=== PATIENT | female | born 1930 | race Caucasian/White ===

== ENCOUNTER 2016-03-11 10:34 | Observation (INO) | payer MEDICARE, BC ==
--- NOTE | 2016-03-11 10:56 | Emergency Department Record ---
History of Present Illness - General Chief Complaint: Hypertension Stated Complaint: HIGH BLOOD PRESSURE Time Seen by Provider: 03/11/16 10:55 Source: Patient Mode of Arrival: Ambulatory Limitations: No limitations - History of Present Illness Initial Comments: The patient is here due to a 2 day hx of gradually increasing mild CP and RALPH. She states the discomfort is very mild and is worse with deep breaths at times. She also states her BP has been up and down at times at home. She also is very upset and crying over the recent of her son which occurred 2 days ago in the [facility]. Complaint: Lightheadedness, Other Onset/Timin -: Days(s) Timing: Gradual onset History of Same: Yes Severity: Mild - Maribell Coma Scale Eye Response: (4) Open spontaneously Motor Response: (6) Obeys commands Verbal Response: (5) Oriented [place] Total: 15 - Related Data Home Medications Medication Instructions Recorded Confirmed Last Taken Hydrocodone/Acetaminophen 1 tab PO ASDIR 10/10/15 03/11/16 1 Day Ago [Hydrocodon-Acetaminoph 7.5-325] Levothyroxine Sodium [Synthroid] 50 mcg PO DAILY 10/10/15 03/11/16 1 Day Ago Lorazepam [Lorazepam] 0.5 mg PO QHS 10/10/15 03/11/16 1 Day Ago Omeprazole [Omeprazole] 40 mg PO DAILY 10/10/15 03/11/16 1 Day Ago Sertraline HCl [Zoloft] 50 mg PO DAILY 10/10/15 03/11/16 1 Day Ago Finasteride [Proscar] 1.25 mg PO DAILY 03/11/16 03/11/16 1 Day Ago Losartan Potassium [Cozaar] 25 mg PO DAILY 03/11/16 03/11/16 1 Day Ago Allergies Allergy/AdvReac Type Severity Reaction Status Date / Time Sulfa (Sulfonamide Allergy Unknown PT UNSURE Verified 03/11/16 10:49 Antibiotics) OF REACTION Travel Screening - Travel/Exposure Within Last 30 Days Have you traveled within the last 30 days?: No - Travel/Exposure Within Last Year Have you traveled outside the [place] in the last year?: No - Additonal Travel Details Have you been exposed to anyone with a communicable illness?: No - Travel Symptoms Symptom Screening: None Review of Systems Constitutional: Denies: Chills, Fever Eyes: Denies: Eye discharge Respiratory: Denies: Cough, Dyspnea Cardiovascular: Reports: Dyspnea on exertion. Denies: Arrhythmia Endocrine: Reports: Fatigue Gastrointestinal: Denies: Diarrhea Genitourinary: Denies: Dysuria Musculoskeletal: Denies: Back pain Skin: Denies: Bruising Past Medical History - SOCIAL HISTORY Smoking Status: Never smoker Alcohol Use: None Drug Use: None - RESPIRATORY Hx Respiratory Disorders: No - CARDIOVASCULAR Hx Hypertension: Yes - NEURO Hx CVA: Yes Hx TIA: Yes (multiple) - GI Hx GI Disorders: Yes Hx Reflux: Yes - Hx Genitourinary Disorders: No - ENDOCRINE Hx Endocrine Disorders: Yes Hx Diabetes: No Hx Thyroid Disease: Yes - MUSCULOSKELETAL Hx Musculoskeletal Disorders: Yes Hx Arthritis: Yes Hx Fibromyalgia: Yes - PSYCH Hx Psych Problems: Yes Hx Depression: Yes - HEMATOLOGY/ONCOLOGY Hx Hematology/Oncology Disorders: Yes Hx Anemia: Yes Hx Cancer: Yes (skin, subcutaneous) Hx Radiation Therapy: Yes Family Medical History Any Significant Family History?: Yes Physical Exam - General General Appearance: Alert, Oriented x3, Cooperative, No acute distress (The patient is tearful about her recent home events.) - Head Head exam: Atraumatic, Normocephalic, Normal inspection - Eye Eye exam: Normal appearance, PERRL - ENT ENT exam: Normal exam, Mucous membranes moist, Normal external ear exam, Normal orophraynx, TM's normal bilaterally Throat exam: Normal inspection. negative: Tonsillar erythema, Tonsillar exudate - Neck Neck exam: Normal inspection, Full ROM. negative: Tenderness - Respiratory Respiratory exam: Normal lung sounds bilaterally. negative: Respiratory distress - Cardiovascular Cardiovascular Exam: Regular rate, Normal rhythm, Normal heart sounds - Extremities Extremities exam: Normal inspection, Full ROM, Normal capillary refill. negative: Tenderness - Back Back exam: Reports: Normal inspection - Neurological Neurological exam: Alert, Normal gait. negative: Abnormal gait, Motor sensory deficit Course Vital Signs 03/11/16 10:41 Temperature 98.0 F Pulse Rate 85 Respiratory 20 Rate Blood Pressure 179/93 Pulse Ox 100 - Reevaluation(s) Reevaluation #1: The patient is resting comfortably and denies any CP or SOB at this time. I did explain to her that her tests appear WNL and that the PE study was negative. She is more calm and less tearful presently. I also recommended keeping the patient in the hospital overnight to be sure her heart is OK and she did agree. I then discussed the case with Karlee (LADONNA) and she accepts the admission. 03/11/16 13:28 Medical Decision Making - Data Complexity MDM Data: Labs Ordered and/or Reviewed, X-Ray Ordered and/or Reviewed, EKG Ordered and/or Reviewed - Lab Data Result diagrams: 03/11/16 11:20 03/11/16 11:20 - EKG Data -: EKG Interpreted by Me (NSR at 75, Minimal ST depression lateral leads.) - Radiology Data Radiology results: Report reviewed (CXR: Pulm Fibrosis Chest CTA: Neg for PE, only fibrosis.) Disposition Disposition: Admit Clinical Impression: Chest pain Qualifiers: Chest pain type: unspecified Qualified Code(s): R07.9 - Chest pain, unspecified Disposition: Still a Patient at [facility] Decision to Admit: Admit from ER Decision to Admit Date: 03/11/16 Decision to Admit Time: 13:29 Accepting Physician: Amy Time Discussed w/Accepting Physician: 13:29 Condition: (2) Stable Forms: Patient Portal Access Time of Disposition: 13:30
[2016-03-11] MEDS ORDERED: ASPIRIN 325 MG TABLET PO ONE (11:08)
[2016-03-11] MEDS ORDERED: LORAZEPAM 2 MG/ML VIAL IV ONE ×2 (11:09→13:19)
[2016-03-11 11:23] LABS: BASO % 0.4 % (0-6); EOS % 0.6 % (0-6); GRAN % 74.1 % (47-80); HEMATOCRIT 36.1 % (35.0-47.0); HEMOGLOBIN 12.3 gm/dl (11.6-16.0); LYMPH % 17.3 % (16-45); MEAN CELL VOLUME 86.2 fl (81-97); MEAN CORPUSCULAR HEMOGLOBIN 29.4 pg (27-33); MEAN CORPUSCULAR HGB CONC 34.1 g/dl (32-36); MEAN PLATELET VOLUME 9.7 fl (7.4-10.4); MONO % 7.6 % (0-9); PLATELET COUNT 267 K/uL (130-400); RED BLOOD COUNT 4.19 M/uL (3.80-5.40); WHITE BLOOD COUNT W/O DIFF 8.3 K/uL (4.2-12.2)
[2016-03-11 11:36] LABS: ANION GAP 13.3 (7-16); BLOOD UREA NITROGEN 9 mg/dL (7-17); CARBON DIOXIDE 23.7 mmol/L (22-30); CREATINE PHOSPHOKINASE 81 U/L (30-135); CREATININE 0.6 mg/dL (0.52-1.04); EST GLOMERULAR FILTRATION RATE > 60 ml/min; GLUCOSE,RANDOM 115 mg/dL (70-110)
[2016-03-11 11:38] LABS: INR 0.96; PARTIAL THROMBOPLASTIN TIME 24.6 SECONDS (24.5-39.1); PROTHROMBIN TIME (PATIENT) 10.8 SECONDS (9.5-12.1)
[2016-03-11 11:39] LABS: D-DIMER 1.11 mg/L FEU (0-0.59)
[2016-03-11 11:49] LABS: CKMB 2.3 ug/L (0-6); TROPONIN I 0.012 ng/mL (0.00-0.034)
[2016-03-11] MEDS ORDERED: 0.9 % SODIUM CHLORIDE 1,000 ML BAG IV ONE (11:56)
[2016-03-11] MEDS ORDERED: ACETAMINOPHEN 500 MG TABLET PO PRN (14:30)
--- NOTE | 2016-03-11 15:11 | RADIOLOGY REPORT ---
EXAM: CHEST HISTORY: CHEST HEAVINESS. PAIN WITH DEEP INSPIRATION. TECHNIQUE: Two views of the chest were obtained. Comparison: 05/25/11. FINDINGS: The heart is not enlarged and there is no mediastinal mass. There are interstitial changes in both lungs which are worse than on the patient's previous study. No focal area of lung consolidation. IMPRESSION: 1. BILATERAL INTERSTITIAL INFILTRATES WHICH ARE WORSE THAN ON THE PATIENT'S PREVIOUS STUDY. PRESUMABLY THIS REPRESENTS A CHRONIC PROGRESSIVE PROCESS. A SUPERIMPOSED ACUTE INTERSTITIAL LUNG PROCESS OR VASCULAR CONGESTION WOULD BE DIFFICULT TO EXCLUDE. 2. OTHERWISE, UNREMARKABLE CHEST EXAMINATION. JOB NUMBER: [id number] MTDD
--- NOTE | 2016-03-11 15:17 | CT ANGIOGRAM REPORT ---
EXAM: CT ANGIOGRAPHY OF THE THORAX HISTORY: CHEST HEAVINESS AND DIFFICULTY BREATHING. D-DIMER 1.11. TECHNIQUE: CT angiography of the thorax was performed following contrast administration. 73 ml of Omnipaque 350 contrast was used for this examination. Coronal and sagittal post processed MIP images were performed on an independent workstation as part of this exam. Comparison: Chest x-ray 03/11/16. FINDINGS: No pulmonary emboli are seen. No aortic aneurysm or aortic dissection identified. No mediastinal or hilar mass or adenopathy. There are interstitial changes in the lungs bilaterally. These may be chronic. Pulmonary fibrosis cannot be excluded. No focal area of lung consolidation seen. No lung mass or lung nodule identified. No pleural or pericardial effusion. Limited upper abdominal images are unremarkable. There has been a prior cholecystectomy and there is some prominence of the intra and extrahepatic bile ducts similar to the previous abdominal CT study from 2010 likely a physiologic response to the cholecystectomy. IMPRESSION: 1. THERE ARE NO PULMONARY EMBOLI. NO AORTIC ANEURYSM OR AORTIC DISSECTION. 2. THERE ARE INTERSTITIAL CHANGES IN BOTH LUNGS WHICH ARE PRESUMABLY CHRONIC. THIS COULD BE THE RESULT OF PULMONARY FIBROSIS. 3. PRIOR CHOLECYSTECTOMY WITH SOME PROMINENCE OF THE INTRA AND EXTRAHEPATIC BILE DUCTS LIKELY A PHYSIOLOGIC RESPONSE TO THE CHOLECYSTECTOMY. 4. NO AREA OF ACUTE LUNG CONSOLIDATION SEEN. [facility]BER: [id number] [facility]
[2016-03-11] MEDS: LORAZEPAM 0.5 MG TABLET PO PRN (15:37)
[2016-03-11 17:26] LABS: TROPONIN I < 0.012 ng/mL (0.00-0.034)
[2016-03-11] MEDS: HYDROCODONE/APAP 7.5/325MG TABLET PO SCH (19:20)
[2016-03-11] MEDS ORDERED: TEMAZEPAM 15 MG CAPSULE PO PRN (20:38)
[2016-03-12 01:31] LABS: CKMB 1.6 ug/L (0-6)
[2016-03-12 01:33] LABS: TROPONIN I < 0.012 ng/mL (0.00-0.034)
[2016-03-12] MEDS: LORAZEPAM 0.5 MG TABLET PO PRN (02:18)
[2016-03-12 06:02] LABS: BASO % 0.4 % (0-6); EOS % 3.1 % (0-6); GRAN % 60.4 % (47-80); HEMATOCRIT 36.9 % (35.0-47.0); HEMOGLOBIN 12.4 gm/dl (11.6-16.0); LYMPH % 26.6 % (16-45); MEAN CELL VOLUME 86.4 fl (81-97); MEAN CORPUSCULAR HGB CONC 33.6 g/dl (32-36); MEAN PLATELET VOLUME 9.6 fl (7.4-10.4); MONO % 9.5 % (0-9); PLATELET COUNT 262 K/uL (130-400); RED BLOOD COUNT 4.27 M/uL (3.80-5.40); RED CELL DISTRIBUTION WIDTH 13.3 % (11.5-14.5); WHITE BLOOD COUNT W/O DIFF 6.9 K/uL (4.2-12.2)
[2016-03-12 06:13] LABS: ANION GAP 10.9 (7-16); BLOOD UREA NITROGEN 9 mg/dL (7-17); CARBON DIOXIDE 24.1 mmol/L (22-30); CREATININE 0.6 mg/dL (0.52-1.04); EST GLOMERULAR FILTRATION RATE > 60 ml/min; GLUCOSE,RANDOM 100 mg/dL (70-110)
[2016-03-12] MEDS ORDERED: PANTOPRAZOLE SODIUM 40 MG TABLET PO SCH (07:00)
[2016-03-12] MEDS ORDERED: PATIENT OWN MED: LORATADINE 10 MG PO SCH (07:00)
[2016-03-12] MEDS ORDERED: PATIENT OWN MED: LEVOTHYROXINE 88 MCG PO SCH (07:00)
--- NOTE | 2016-03-12 07:34 | History & Physical ---
History of Present Illness - Date of Service Date of Service for History & Physical: 03/12/16 - History of Present Illness Admitting Diagnosis: 1. Chest pain, R/O MO. History of Present Illness: 85yo female with CC of chest discomfort and difficulty breathing. She has a history of HTN, CVA, TIA, GERD, pulmonary fibrosis, hypothyroidism, arthritis ( follows with rheumatology), depression and anxiety. Patient presented to the ED after a 2 day hx of gradually increasing mild CP and RALPH. She states the discomfort is very mild and is worse with deep breaths at times. She also states her BP has been up and down at times at home. Just prior to onset of symptoms patient found out her son had unexpectedly while he was on vacation in the [place]. She has been very upset and crying much of the past 2 days. Her family urged her to come to the ED to make sure her heart was ok. While in the ED, patient had EKG which showed NSR with minimal ST depresion in the lateral leads. 1st set of CE returned WNL range. CXR showed findings consistent with h/o pulmonary fibrosis. CMP showed sodium sightly low at 131. D- Dimer was elevated at 1.11. CTA was negative for PE. Patient received 0.5mg of ativan which improved her shortness of breath and chest discomfort. She was admitted for serial enzymes 03/12/16- Patient states her chest discomfort has resolved. She still occasionally feels short of breath but admits that occurs when she is crying. She is very tearful throughout exam, understandably. She reorts having been followed by neurology for a while after her CVA and several TIA's. Last one was about 4 years ago. She does not think she has ever been seen by cardiology. She has never had issues with chest pain prior. She does have history of anxiety and depression. She has not been taking her zoloft for quite some time (>3 months). she does take lorazepam 1.5mg PO before bed regularly. PCP: Maribel Travel Screening - Travel/Exposure Within Last 30 Days Have you traveled within the last 30 days?: No - Travel/Exposure Within Last Year Have you traveled outside the [place] in the last year?: No - Additonal Travel Details Have you been exposed to anyone with a communicable illness?: No - Travel Symptoms Symptom Screening: None Review of Systems Constitutional: Denies: Chills, Fever Eyes: Denies: Eye discharge Respiratory: Denies: Cough, Dyspnea Cardiovascular: Reports: Dyspnea on exertion. Denies: Arrhythmia Endocrine: Reports: Fatigue Gastrointestinal: Denies: Diarrhea Genitourinary: Denies: Dysuria Musculoskeletal: Denies: Back pain Skin: Denies: Bruising Past Medical History - SOCIAL HISTORY Smoking Status: Never smoker Alcohol Use: Occassional Drug Use: None - RESPIRATORY Hx Respiratory Disorders: No - CARDIOVASCULAR Hx Cardio Disorders: No Hx Hypertension: Yes - NEURO Hx Neuro Disorders: No Hx CVA: Yes Hx TIA: Yes (multiple) - GI Hx GI Disorders: Yes Hx Reflux: Yes - Hx Genitourinary Disorders: No - ENDOCRINE Hx Endocrine Disorders: Yes Hx Thyroid Disease: Yes - MUSCULOSKELETAL Hx Musculoskeletal Disorders: Yes Hx Arthritis: Yes Hx Fibromyalgia: Yes - PSYCH Hx Psych Problems: Yes Hx Depression: Yes - HEMATOLOGY/ONCOLOGY Hx Hematology/Oncology Disorders: Yes Hx Anemia: Yes Hx Cancer: Yes (skin, subcutaneous) Hx Radiation Therapy: Yes Family Medical History Any Significant Family History?: No H&P Meds/Allergies - Allergies Allergies: Allergies Allergy/AdvReac Type Severity Reaction Status Date / Time Sulfa (Sulfonamide Allergy Unknown PT UNSURE Verified 03/11/16 10:49 Antibiotics) OF REACTION - Home Medications Home Medications Medication Instructions Recorded Confirmed Last Taken Hydrocodone/Acetaminophen 1 tab PO ASDIR 10/10/15 03/11/16 1 Day Ago [Hydrocodon-Acetaminoph 7.5-325] Levothyroxine Sodium [Synthroid] 50 mcg PO DAILY 10/10/15 03/11/16 1 Day Ago Lorazepam 0.5 mg PO QHS 10/10/15 03/11/16 1 Day Ago Omeprazole 40 mg PO DAILY 10/10/15 03/11/16 1 Day Ago Sertraline HCl [Zoloft] 50 mg PO DAILY 10/10/15 03/11/16 1 Day Ago Finasteride [Proscar] 1.25 mg PO DAILY 03/11/16 03/11/16 1 Day Ago Losartan Potassium [Cozaar] 25 mg PO DAILY 03/11/16 03/11/16 1 Day Ago - Active Medications Active Medications: Current Medications Acetaminophen (Tylenol 500mg Tab) 500 mg PO Q6H PRN PRN Reason: PAIN/TEMP Acetaminophen/Hydrocodone Bitart ([place] 7.5mg/325mg) 1 each PO 0700,1900 HETAL Last Admin: 03/11/16 19:20 Dose: Not Given Aspirin (Ecotrin (Ec)) 325 mg PO DAILY HETAL Lorazepam (Ativan) 0.5 mg PO BID PRN PRN Reason: ANXIETY Last Admin: 03/12/16 02:18 Dose: 0.5 mg Patient Own Med: (Finasteride 5 Mg) 0.25 each PO DAILY HETAL Patient Own Med: (Levothyroxine 88 Mcg) 1 each PO DAILYTHY HETAL Patient Own Med: (Loratadine 10 Mg) 1 each PO 0700 HETAL Temazepam (Restoril) 15 mg PO QHS PRN PRN Reason: INSOMNIA Last Admin: 03/11/16 20:44 Dose: 15 mg Physical Exam - Vital Signs Vital Signs: Vital Signs - Last 24 Hrs Temp Pulse Resp BP BP Pulse Ox 03/12/16 00:00 97.9 F 79 18 115/57 97 03/11/16 21:00 70 16 03/11/16 20:40 98 03/11/16 20:30 98.2 F 78 16 118/68 98 03/11/16 18:21 97 03/11/16 16:30 81 16 128/74 99 03/11/16 15:11 73 16 03/11/16 14:30 97.6 F 73 16 148/80 97 - General General Appearance: Alert, Oriented x3, Cooperative, No acute distress (The patient is tearful about her recent home events.) Limitations: No limitations - Head Head exam: Atraumatic, Normocephalic, Normal inspection - Eye Eye exam: Normal appearance, PERRL - ENT ENT exam: Normal exam, Mucous membranes moist, Normal external ear exam, Normal orophraynx, TM's normal bilaterally Throat exam: Normal inspection. negative: Tonsillar erythema, Tonsillar exudate - Neck Neck exam: Normal inspection, Full ROM. negative: Tenderness - Respiratory Respiratory exam: Normal lung sounds bilaterally. negative: Respiratory distress - Cardiovascular Cardiovascular Exam: Regular rate, Normal rhythm, Normal heart sounds - Extremities Extremities exam: Normal inspection, Full ROM, Normal capillary refill. negative: Tenderness - Back Back exam: Reports: Normal inspection - Neurological Neurological exam: Alert, Normal gait, Oriented X3, Reflexes normal. negative: Abnormal gait, Motor sensory deficit - Psychiatric Psychiatric exam: Depressed, Normal affect - Skin Skin exam: Dry, Intact, Normal color, Warm Results - Labs Result Diagrams: 03/12/16 05:55 03/12/16 05:55 Labs Last 24 Hours: Laboratory Results - last 24 hr 03/11/16 03/12/16 03/12/16 16:50 01:00 05:55 WBC 6.9 RBC 4.27 Hgb 12.4 Hct 36.9 MCV 86.4 MCH 29.0 MCHC 33.6 RDW 13.3 Plt Count 262 MPV 9.6 Gran % 60.4 Lymphocytes % 26.6 Monocytes % 9.5 H Eosinophils % 3.1 Basophils % 0.4 Sodium Potassium Chloride Carbon Dioxide Anion Gap BUN Creatinine Estimated GFR Random Glucose Calcium CK-MB (CK-2) 2.0 1.6 Troponin I < 0.012 < 0.012 03/12/16 05:55 WBC RBC Hgb Hct MCV MCH MCHC RDW Plt Count MPV Gran % Lymphocytes % Monocytes % Eosinophils % Basophils % Sodium 134 L Potassium 4.2 Chloride 99 Carbon Dioxide 24.1 Anion Gap 10.9 BUN 9 Creatinine 0.6 Estimated GFR > 60 Random Glucose 100 Calcium 9.2 CK-MB (CK-2) Troponin I - Imaging and Cardiology CT scan - chest Status: Report reviewed (no PE or dissection; pulmonary fibrosis) VTE H&P Assessment - Risk for VTE Risk for VTE: Yes Risk Level: High Risk Assessment Date: 03/12/16 Risk Assessment Time: 09:00 VTE Orders Placed or Will Be Placed: Yes Plan - Detailed Diagnosis and Plan (1) Chest pain Status: Acute Qualifiers: Chest pain type: unspecified Qualified Code(s): R07.9 - Chest pain, unspecified Base Code: R07.9 - CHEST PAIN, UNSPECIFIED Comment: 03/12/16- Resolved. She says the chest discomfort she was experiencing yesterday has resolved and not returned. Still feels mildly SOB when she is crying. She says the lorazepam seems to help significantly. CTA negative for PE , dissection, acute process. EKG remains unchanged this morning. All 3 sets of CE returned WNL. Sodium improved to 134 this morning and rest of labs are unremarkable. Do not feel her disomfort was cardiac in origin but likely related to acute grief she is feeling at loss of her son 2 days ago. -Explained to patient that I do not feel her pain is cardiac in origin but that she does have some risk factors for CVD with history of CVA, TIA's. Unfortunately, we do not have cardiology, echo or stress capabilities here over the weekend. I do feel patient can have an outpatient cardiology consult for further work-up and will have specialty clinic call her on Monday to schedule with either Dr. Albarran or Sulaiman. Patient agrees with this plan. -She will call on Monday to schedule follow up with Dr. López (2) Grief at loss of child Status: Acute Base Code: F43.21 - ADJUSTMENT DISORDER WITH DEPRESSED MOOD; Z63.4 - DISAPPEARANCE AND OF FAMILY MEMBER Comment: 03/12/16- spent 20 mintues providing giref counseling. Patient just feeling very overhwelmed currently with the news of her son's passing. She does report a strong family support system and also has good support from her sweat band separator. She has not been taking her zoloft for several months but has been taking lorazepam 1.5mg at bedtime. I did explain the risks of benzodiazepine use incuding SHIP MATE depression and even , and the importance of trying to limit use. I discussed how SSRI therapy may take several weeks to become effective but that it will likely be more beneficial in treating and preventing her anxiety. -she will re-start her zoloft at very low dose 25mg PO daily until she sees her PCP and then can be titrated back up to her 50mg dose if tolerating well. (3) DNR (do not resuscitate) Status: Acute Base Code: Z66 - DO NOT RESUSCITATE Comment: 03/12/16- patient requests DNR (4) DVT prophylaxis Status: Acute Base Code: [id number] - Comment: 03/12/16- Patient is high risk for DVT with age and restricted mobility -lovenox 40mg SQ ordered
--- NOTE | 2016-03-12 07:34 | Discharge Summary ---
Providers Discharge Summary Date: 03/12/16 Date of admission: 03/11/16 14:17 Expected Date of Discharge: 03/12/16 Attending physician: JULIEN LIMA Primary care physician: MEHDI LÓPEZ D.O. Physical Exam - Vital Signs Vital Signs: Vital Signs - Last 24 Hrs Temp Pulse Resp BP BP Pulse Ox 03/12/16 00:00 97.9 F 79 18 115/57 97 03/11/16 21:00 70 16 03/11/16 20:40 98 03/11/16 20:30 98.2 F 78 16 118/68 98 03/11/16 18:21 97 03/11/16 16:30 81 16 128/74 99 03/11/16 15:11 73 16 03/11/16 14:30 97.6 F 73 16 148/80 97 - General General Appearance: Alert, Oriented x3, Cooperative, No acute distress (The patient is tearful about her recent home events.) Limitations: No limitations - Head Head exam: Atraumatic, Normocephalic, Normal inspection - Eye Eye exam: Normal appearance, PERRL - ENT ENT exam: Normal exam, Mucous membranes moist, Normal external ear exam, Normal orophraynx, TM's normal bilaterally Throat exam: Normal inspection. negative: Tonsillar erythema, Tonsillar exudate - Neck Neck exam: Normal inspection, Full ROM. negative: Tenderness - Respiratory Respiratory exam: Normal lung sounds bilaterally. negative: Respiratory distress - Cardiovascular Cardiovascular Exam: Regular rate, Normal rhythm, Normal heart sounds - Extremities Extremities exam: Normal inspection, Full ROM, Normal capillary refill. negative: Tenderness - Back Back exam: Reports: Normal inspection - Neurological Neurological exam: Alert, Normal gait. negative: Abnormal gait, Motor sensory deficit Hospitalization - Hospitalization Admission Diagnosis: 1. Chest pain, R/O DC. - Problem List/Discharge Diagnosis (1) Chest pain Status: Acute Discharge Diagnosis: Chest pain type: unspecified Qualified Code(s): R07.9 - Chest pain, unspecified Base Code: R07.9 - CHEST PAIN, UNSPECIFIED Comment: 03/12/16- Resolved. She says the chest discomfort she was experiencing yesterday has resolved and not returned. Still feels mildly SOB when she is crying. She says the lorazepam seems to help significantly. CTA negative for PE , dissection, acute process. EKG remains unchanged this morning. All 3 sets of CE returned WNL. Sodium improved to 134 this morning and rest of labs are unremarkable. Do not feel her disomfort was cardiac in origin but likely related to acute grief she is feeling at loss of her son 2 days ago. -Explained to patient that I do not feel her pain is cardiac in origin but that she does have some risk factors for CVD with history of CVA, TIA's. Unfortunately, we do not have cardiology, echo or stress capabilities here over the weekend. I do feel patient can have an outpatient cardiology consult for further work-up and will have specialty clinic call her on Monday to schedule with either Dr. Albarran or Sulaiman. Patient agrees with this plan. -She will call on Monday to schedule follow up with Dr. López (2) Grief at loss of child Status: Acute Base Code: F43.21 - ADJUSTMENT DISORDER WITH DEPRESSED MOOD; Z63.4 - DISAPPEARANCE AND OF FAMILY MEMBER Comment: 03/12/16- spent 20 mintues providing giref counseling. Patient just feeling very overhwelmed currently with the news of her son's passing. She does report a strong family support system and also has good support from her ham curer. She has not been taking her zoloft for several months but has been taking lorazepam 1.5mg at bedtime. 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 I discussed how SSRI therapy may take several weeks to become effective but that it will likely be more beneficial in treating and preventing her anxiety. -she will re-start her zoloft at very low dose 25mg PO daily until she sees her PCP and then can be titrated back up to her 50mg dose if tolerating well. (3) DNR (do not resuscitate) Status: Acute Base Code: Z66 - DO NOT RESUSCITATE Comment: 03/12/16- patient requests DNR (4) DVT prophylaxis Status: Acute Base Code: [id number] - Comment: 03/12/16- Patient is high risk for DVT with age and restricted mobility -lovenox 40mg SQ ordered. Patient discharged prior to administration. - Hospitalization Course Disposition: Home, Self-Care Hospital Course: 85yo female with CC of chest discomfort and difficulty breathing. She has a history of HTN, CVA, TIA, GERD, pulmonary fibrosis, hypothyroidism, arthritis ( follows with rheumatology), depression and anxiety. Patient presented to the ED after a 2 day hx of gradually increasing mild CP and RALPH. She states the discomfort is very mild and is worse with deep breaths at times. She also states her BP has been up and down at times at home. Just prior to onset of symptoms patient found out her son had unexpectedly while he was on vacation in the [facility]. She has been very upset and crying much of the past 2 days. Her family urged her to come to the ED to make sure her heart was ok. While in the ED, patient had EKG which showed NSR with minimal ST depresion in the lateral leads. 1st set of CE returned WNL range. CXR showed findings consistent with h/o pulmonary fibrosis. CMP showed sodium sightly low at 131. D- Dimer was elevated at 1.11. CTA was negative for PE. Patient received 0.5mg of ativan which improved her shortness of breath and chest discomfort. She was admitted for serial enzymes 03/12/16- Patient states her chest discomfort has resolved. She still occasionally feels short of breath but admits that occurs when she is crying. She is very tearful throughout exam, understandably. She reorts having been followed by neurology for a while after her CVA and several TIA's. Last one was about 4 years ago. She does not think she has ever been seen by cardiology. She has never had issues with chest pain prior. She does have history of anxiety and depression. She has not been taking her zoloft for quite some time (>3 months). she does take lorazepam 1.5mg PO before bed regularly. PCP: Maribel Abnormal Labs: Abnormal Lab Results 03/12/16 03/12/16 Range/Units 05:55 05:55 Monocytes % 9.5 H (0-9) % Sodium 134 L (136-145) mmol/L Condition at Discharge: (2) Stable Discharge Medications - Discharge Medications Home Medications: Ambulatory Orders Hydrocodone/Acetaminophen [Hydrocodon-Acetaminoph 7.5-325] 1 tab PO ASDIR [Last Taken 1 Day Ago] Levothyroxine Sodium [Synthroid] 50 mcg PO DAILY 10/10/15 [Last Taken 1 Day Ago] Lorazepam 0.5 mg PO QHS 10/10/15 [Last Taken 1 Day Ago] Omeprazole 40 mg PO DAILY 10/10/15 [Last Taken 1 Day Ago] Sertraline HCl [Zoloft] 50 mg PO DAILY 10/10/15 [Last Taken 1 Day Ago] Finasteride [Proscar] 1.25 mg PO DAILY 03/11/16 [Last Taken 1 Day Ago] Losartan Potassium [Cozaar] 25 mg PO DAILY 03/11/16 [Last Taken 1 Day Ago] Discharge Plan - Discharge Instructions Activity at Discharge: Resume Usual Activities As Tolerated Diet at Discharge: Low Fat, Low Cholesterol, Low Salt Diet Instructions: Chest Pain (DC) Additional Instructions: 2 Activity: Resume Usual Activities As Tolerated 2 Diet: Low Fat, Low Cholesterol Low Salt Diet 2 Consults: [] 2 Follow Up: [[facility] Specialty clinic will call this week to set up appointment with Dr. Albarran or Dr. Hilario, cardiology. Please call Dr. López's office on Monday to schedule a follow up appointment] 2 Dressing/Wound Care: (Type) (Change) 2 Additional: [] Re-start the zoloft at 25mg PO daily until you follow up with Dr. López Please return to ED for any chest pain, shortness of breath, severe headache, or other concerns
[2016-03-12] MEDS: HYDROCODONE/APAP 7.5/325MG TABLET PO SCH (08:12)
[2016-03-12] MEDS: ASPIRIN 325 MG TAB ENTERIC-COATED PO SCH ×2 (08:12→09:26)
[2016-03-12] MEDS: PATIENT OWN MED: FINASTERIDE 5 MG PO SCH ×2 (08:13→09:26)
[2016-03-12] MEDS ORDERED: SERTRALINE HCL 50 MG TABLET PO SCH (10:00)
[2016-03-12] MEDS ORDERED: LOSARTAN POTASSIUM 25 MG TABLET PO SCH (10:00)
== END 2016-03-12 11:05 | disposition home or self-care (01) ==
LOC: ER 10:34 → MEDSURG 14:17
PROVIDERS: ADMIT Family Medicine; ATTEND Family Medicine
DX: R07.9 Chest pain, unspecified (principal); F43.21 Adjustment disorder with depressed mood; Z63.4 Disappearance and death of family member; Z66 Do not resuscitate; Z86.73 Personal history of transient ischemic attack (TIA), and cerebral infarction without residual deficits; I10 Essential (primary) hypertension; J84.10 Pulmonary fibrosis, unspecified; E03.9 Hypothyroidism, unspecified
CPT/HCPCS: 93041; 99285 ×2; 94760; 96374; 82550; 85025 ×2; 85730; 85610; 82553 ×2; 84484 ×2; 80048 ×2; 85379; 71020; 71275; 94761; 93005 ×2; 93010 ×2; G0378 ×2; Q9967; J2060; 99220; J7030

== ENCOUNTER 2016-08-19 08:51 | Day surgery (SDC) | payer MEDICARE, BC ==
[2016-08-19] MEDS ORDERED: PROPOFOL 10 MG/ML VIAL IV ONE (14:44)
[2016-08-19] MEDS ORDERED: FENTANYL PF 100MCG/2ML VIAL IV ONE (14:44)
[2016-08-19] MEDS ORDERED: LIDOCAINE 2% MDV (20MG/ML) 20ML VIAL IV ONE (14:44)
--- NOTE | 2016-08-24 12:51 | Operative Note ---
DATE OF SURGERY: 08/19/2016 SURGEON: Saima Fulton MD OPERATION: ESOPHAGOGASTRODUODENOSCOPY. INDICATIONS: This is an 85-year-old female with a history of epigastric pain with nausea who presented for esophagogastroduodenoscopy. POSTOPERATIVE DIAGNOSES: 1. Normal esophagus. 2. Mild gastritis. 3. Normal duodenum. ANESTHESIA: Sedation is per Anesthesia. Pulse oximetry was monitored throughout the procedure to maintain O2 saturation of 90% or greater. Supplemental oxygen was administered via nasal cannula. Cardiac and vital signs were monitored throughout the duration of the procedure, and they were stable. The procedure of esophagogastroduodenoscopy and risks and benefits of the procedure, including the risk of bleeding and perforation, among others, were explained to the patient who voiced understanding and agreed to have the procedure done. Physical examination was performed, and the patient was found stable for sedation. PROCEDURE: The patient was placed in the left lateral position. Sedation was initiated. A plastic bite block was inserted into the oral cavity. The Olympus [id number] gastroscope was introduced into the oral cavity and advanced to the proximal esophagus without difficulty. The esophageal mucosa was carefully examined upon introduction of the gastroscope. The proximal, mid, and distal esophageal mucosa appeared normal. The gastroscope was then advanced into the stomach, and surveillance of the stomach revealed diffuse erythema along the gastric body and antrum but no ulcers were noted. The gastroscope was then advanced to the descending duodenum without difficulty. The duodenal bulb and descending duodenum appeared normal. The gastroscope was then withdrawn into the stomach and retroflexion was performed. There were no other lesions noted. The gastroscope was then straightened and withdrawn while carefully examining the gastric and esophageal mucosa. No other lesions noted. Multiple gastric and duodenal biopsies were obtained. She remained with stable vital signs and was transferred to the recovery room. RECOMMENDATIONS: 1. The patient should continue on her proton pump inhibitors. 2. The patient is to follow up with me in the office. Thank you for allowing me to participate in the care of your patient. Saima Fulton MD CC: Dr. Devan BARNHART
== END 2016-08-19 11:13 | disposition home or self-care (01) ==
LOC: HOP 08:51
PROVIDERS: ATTEND Internal Medicine Gastroenterology
DX: K29.80 Duodenitis without bleeding (principal); K29.70 Gastritis, unspecified, without bleeding; I10 Essential (primary) hypertension; E03.9 Hypothyroidism, unspecified

== ENCOUNTER 2017-10-30 15:23 | Emergency (ER) | payer MEDICARE, BC ==
[2017-10-30 15:58] LABS: BASO % 0.5 % (0-6); EOS % 4.6 % (0-6); GRAN % 56.9 % (47-80); HEMATOCRIT 34.8 % (35.0-47.0); HEMOGLOBIN 11.3 gm/dl (11.6-16.0); LYMPH % 28.4 % (16-45); MEAN CELL VOLUME 89.5 fl (81-97); MEAN CORPUSCULAR HGB CONC 32.5 g/dl (32-36); MEAN PLATELET VOLUME 9.3 fl (7.4-10.4); MONO % 9.6 % (0-9); PLATELET COUNT 248 K/uL (130-400); RED BLOOD COUNT 3.89 M/uL (3.80-5.40); RED CELL DISTRIBUTION WIDTH 13.8 % (11.5-14.5); WHITE BLOOD COUNT W/O DIFF 6.1 K/uL (4.2-12.2)
--- NOTE | 2017-10-30 15:58 | Emergency Department Record ---
History of Present Illness - General Chief Complaint: Difficulty Breathing Stated Complaint: RALPH Time Seen by Provider: 10/30/17 15:40 Source: Patient Mode of Arrival: Ambulatory Limitations: No limitations - History of Present Illness Initial Comments: The patient is here due to worsening RAIN over the last few months to years. She denies any recent change. The patient denies any cough, CP, leg pain or any recent travel. She was recently diagnosed with Afib and is supposed to be on anticoagulants but has not filled them. She was at her PCP's office and told her about the RAIN and was sent to the ER for evaluation. MD Complaint: Shortness of breath Onset/Timin -: Month(s) Improves With: Nothing Worsens With: Nothing Associated Symptoms: Denies other symptoms Treatments Prior to Arrival: Asprin - Related Data Home Medications Medication Instructions Recorded Confirmed Last Taken Amiodarone HCl [Pacerone] 200 mg PO DAILY 10/30/17 10/30/17 10/30/17 Ergocalciferol (Vitamin D2) 50,000 unit PO WEEKLY 10/30/17 10/30/17 10/30/17 [Vitamin D2] Hydrocodone/Acetaminophen [[place] 1 each PO TID 10/30/17 10/30/17 10/30/17 7.5-325 Tablet] Levothyroxine Sodium [Synthroid] 88 mcg PO DAILY 10/30/17 10/30/17 10/30/17 Loratadine/Pseudoephedrine 1 tab PO DAILY 10/30/17 10/30/17 10/30/17 [Claritin-D 24 Hour Tablet] Lorazepam [Ativan] 0.5 mg PO QHS 10/30/17 10/30/17 10/30/17 Metoprolol Succinate [Toprol Xl] 25 mg PO DAILY 10/30/17 10/30/17 10/30/17 Sertraline HCl [Zoloft] 50 mg PO DAILY 10/30/17 10/30/17 10/30/17 Allergies Allergy/AdvReac Type Severity Reaction Status Date / Time Sulfa (Sulfonamide Allergy Severe PT UNSURE Verified 10/30/17 15:53 Antibiotics) OF REACTION Travel Screening - Travel/Exposure Within Last 30 Days Have you traveled within the last 30 days?: No - Travel/Exposure Within Last Year Have you traveled outside the [place] in the last year?: No - Additonal Travel Details Have you been exposed to anyone with a communicable illness?: No - Travel Symptoms Symptom Screening: None Review of Systems Constitutional: Denies: Chills, Fever Eyes: Denies: Eye discharge ENT: Denies: Congestion Respiratory: Reports: Dyspnea. Denies: Cough, Hemoptysis Cardiovascular: Reports: Dyspnea on exertion. 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 - CARDIOVASCULAR Hx Cardio Disorders: Yes Hx Hypertension: Yes Comment:: does all house/yard work - NEURO Hx Neuro Disorders: Yes Hx CVA: Yes Hx TIA: Yes (multiple) - GI Hx GI Disorders: Yes Hx Abdominal Pain: Yes Hx Reflux: Yes Hx Wt Loss/Wt Gain: Yes (loss of approx 7 lbs) Hx of Polyps: Yes Comment:: epigastric pain - Hx Genitourinary Disorders: No - ENDOCRINE Hx Endocrine Disorders: Yes Hx Thyroid Disease: Yes - MUSCULOSKELETAL Hx Musculoskeletal Disorders: Yes Hx Arthritis: Yes Hx Fibromyalgia: Yes - PSYCH Hx Psych Problems: Yes Hx Anxiety: Yes Hx Depression: Yes - HEMATOLOGY/ONCOLOGY Hx Hematology/Oncology Disorders: Yes Hx Anemia: Yes Hx Cancer: Yes (skin) Hx Radiation Therapy: Yes Family Medical History Any Significant Family History?: No Hx Cancer: Brother/Sister *Cancer Comment: sister-gallbladder, sister-breast, brother-skin/kidney, brother x2-lung Physical Exam - General General Appearance: Alert, Oriented x3, Cooperative, No acute distress - Head Head exam: Atraumatic, Normocephalic, Normal inspection - Eye Eye exam: Normal appearance, PERRL, EOMI - ENT Throat exam: Normal inspection. negative: Tonsillar erythema, Tonsillar exudate - Neck Neck exam: Normal inspection, Full ROM. negative: Tenderness - Respiratory Respiratory exam: Rhonchi (bilaterally in the lower lobes.). negative: Normal lung sounds bilaterally, Accessory muscle use, Decreased breath sounds - Cardiovascular Cardiovascular Exam: Regular rate, Normal rhythm, Normal heart sounds - GI/Abdominal GI/Abdominal exam: Soft, Normal bowel sounds. negative: Tenderness - Extremities Extremities exam: Normal inspection, Full ROM, Normal capillary refill. negative: Tenderness - Neurological Neurological exam: Alert, Normal gait. negative: Abnormal gait, Motor sensory deficit - Psychiatric Psychiatric exam: negative: Anxious Course Vital Signs 10/30/17 15:29 Pulse Rate 60 Respiratory 18 Rate Blood Pressure 154/64 Pulse Ox 97 - Reevaluation(s) Reevaluation #1: The patient is doing very well at this time. She is up walking with no RALPH, SOB , or CP. I did explain to her that her evaluation does appear normal for her. I do believe her progressively increasing RAIN is due to her Pulm Fibrosis. She is to F/U with her PCP later this week for further eval. 10/30/17 17:17 Medical Decision Making - Data Complexity MDM Data: Labs Ordered and/or Reviewed, X-Ray Ordered and/or Reviewed, EKG Ordered and/or Reviewed - Lab Data Result diagrams: 10/30/17 15:45 10/30/17 15:45 - EKG Data -: EKG Interpreted by Me EKG: No Acute Changes (NSR at 58, LVH, Borderline prolonged MS interval.) - Radiology Data Radiology results: Report reviewed (CXR: Possible progression of Pulm Fibrosis.) Disposition Disposition: Discharge Clinical Impression: Pulmonary fibrosis Disposition: Home, Self-Care Condition: (2) Stable Instructions: Dyspnea (ED) Additional Instructions: Please continue your regular medicines and please see your family doctor later this week for further evaluation. Please return to the ER for any worsening symptoms. Forms: Patient Portal Access Time of Disposition: 17:19 Quality - Quality Measures Quality Measures: N/A - Blood Pressure Screening View Details: Yes Does Patient Have Any of the Following: Active Dx of HTN Blood Pressure Classification: Hypertensive Reading Systolic Measurement: 159 Diastolic Measurement: 65 Screening for High Blood Pressure: Patient Exclusion, Hx of HTN [[id number]]
[2017-10-30 16:08] LABS: BLOOD UREA NITROGEN 9 mg/dL (8-23); EST GLOMERULAR FILTRATION RATE 56 mL/min
[2017-10-30 16:11] LABS: GLUCOSE,RANDOM 121 mg/dL (74-109)
[2017-10-30 16:13] LABS: PARTIAL THROMBOPLASTIN TIME 25.2 SECONDS (24.5-39.1); PROTHROMBIN TIME (PATIENT) 10.4 SECONDS (9.5-12.1)
[2017-10-30 16:14] LABS: CREATINE PHOSPHOKINASE 60 U/L (26-192)
[2017-10-30 16:16] LABS: CKMB 2.4 ng/mL (<3.77)
--- NOTE | 2017-11-01 13:05 | RADIOLOGY REPORT ---
EXAM: CHEST, TWO VIEWS HISTORY: DIFFICULTY BREATHING. TECHNIQUE: Two views of the chest were obtained. Comparison: Chest x-ray 03/11/[address] of the thorax 03/11/16. FINDINGS: The lung volumes are slightly increased. Reticulonodular opacities in the periphery of the lungs again seen, slightly increased in the interim. No consolidation. No pleural effusion or pneumothorax. The cardiomediastinal silhouette is within normal limits. The bony structures show mild degenerative changes of the spine. Cholecystectomy clips are present. IMPRESSION: NO ACUTE CARDIOPULMONARY ABNORMALITIES ARE IDENTIFIED. THERE MAY BE PROGRESSION OF THE PULMONARY FIBROSIS. JOB NUMBER: [id number] MTDD
== END 2017-10-30 17:40 | disposition home or self-care (01) ==
LOC: ER 15:23
DX: J84.10 Pulmonary fibrosis, unspecified (principal); R06.02 Shortness of breath; I10 Essential (primary) hypertension; I48.91 Unspecified atrial fibrillation
CPT/HCPCS: 71046; 80048; 82550; 82553; 83880; 84484; 85025; 85610; 85730; 93005; 93010; 99284